=== PATIENT | male | born 1970 ===

== ENCOUNTER 2020-04-19 02:53 | Emergency (ER) | payer SELFPAY ==
[~2020-04-19] VITALS: Ht 170.2 cm; Wt 79.5 kg
[2020-04-19 02:59] VITALS: BP 146/97
== END 2020-04-19 03:27 | disposition home or self-care (01) ==
LOC: EMS 02:53
DX: S00.81XA Abrasion of other part of head, initial encounter (principal); F10.129 Alcohol abuse with intoxication, unspecified; X58.XXXA Exposure to other specified factors, initial encounter; Y93.89 Activity, other specified; Y92.89 Other specified places as the place of occurrence of the external cause; Y99.8 Other external cause status; Y90.0 Blood alcohol level of less than 20 mg/100 ml
CPT/HCPCS: 99283; Z7502